=== PATIENT | male | born 1975 | race Two or more races ===

== ENCOUNTER 2022-12-25 11:28 | Emergency (ER) | payer OTHER ==
[~2022-12-25] VITALS: Ht 188 cm; Wt 93.0 kg
[2022-12-25] MEDS ORDERED: TRAZODONE HCL150 MG PO (11:43)
[2022-12-25] MEDS ORDERED: BUPROPION HCL100 M1 PO (11:43)
[2022-12-25] MEDS ORDERED: ATIVAN2 M1 PO (11:44)
== END 2022-12-25 14:52 | disposition home or self-care (01) ==
LOC: ER 11:28
DX: F32.A Depression, unspecified (principal); Z88.8 Allergy status to other drugs, medicaments and biological substances

== ENCOUNTER 2023-01-02 18:59 | Emergency (ER) | payer OTHER ==
[~2023-01-02] VITALS: Ht 188 cm; Wt 97.5 kg
[~2023-01-02 18:59] MED LIST: ATIVAN2 M1 PO; BUPROPION HCL100 M1 PO; TRAZODONE HCL150 MG PO
== END 2023-01-03 04:58 | disposition home or self-care (01) ==
LOC: ER 18:59
DX: R53.1 Weakness (principal); F69 Unspecified disorder of adult personality and behavior; F48.9 Nonpsychotic mental disorder, unspecified; Z88.6 Allergy status to analgesic agent; Z88.8 Allergy status to other drugs, medicaments and biological substances